=== PATIENT | female | born 1940 | race Caucasian/White ===

== ENCOUNTER 2018-04-30 15:33 | Emergency (ER) | payer OTHER, MEDICARE ==
[~2018-04-30] VITALS: Ht 152.4 cm; Wt 73.9 kg
[~2018-04-30 15:33] MED LIST: ADVAIR DISKUS 21 DSK INH; ASPIR 8181 MG PO; BENICAR HCT 12.1 TA1 PO; NASONEX0.05 MG/Ac NAS; NEXIUM 40MG40 MG PO; NORVASC5 MG PO; SINGULAIR10 MG PO; SYNTHROID0.1 MG PO; TOPROL XL 25MG25 MG PO; TOPROL XL 50MG50 MG PO; XOPENEX HFA45 MCG INH
--- NOTE | 2018-04-30 17:13 | RADIOLOGY REPORT ---
EXAMINATION: XR CHEST CLINICAL INFORMATION: Chest pain COMPARISON: 10/25/2014 TECHNIQUE: 2 views of the chest were obtained. FINDINGS: Cardio missile contours are stable. Mild atherosclerotic calcification involving the visualized thoracic aorta. The lungs are clear aside from subsegmental areas of atelectasis at the lung bases. No pleural effusion. IMPRESSION: No pneumonia. Mild bibasilar subsegmental atelectasis.
--- NOTE | 2018-04-30 17:20 | ED CARDIAC/CP/PALPITATIONS ---
History of Present Illness General Chief Complaint: Chest Pain Stated Complaint: CP/BACK AND SHOULDER PAIN PER PT Source: patient, family Exam Limitations: no limitations Vital Signs & Intake/Output Vital Signs & Intake/Output Vital Signs Date Time Temp Pulse Resp B/P B/P Pulse O2 O2 Flow FiO2 Mean Ox Delivery Rate 04/30 2306 98.2 77 20 140/58 99 Room Air 04/30 1818 98.6 76 18 146/85 98 Room Air 04/30 1718 95 Room Air 04/30 1547 98.4 69 18 155/74 97 Room Air ED Intake and Output 05/01 0000 04/30 1200 Intake Total 0 Output Total Balance 0 Intake, Oral 0 Patient 163 lb Weight Weight Reported by Patient Measurement Method Allergies Coded Allergies: clarithromycin (SWELLING TO FACE 04/30/18) Reconcile Medications Albuterol Sulfate (Proair Hfa) 90 MCG HFA.AER.AD 2 PUF INH Q4-6 PRN PRN ASTHMA (Reported) Amlodipine Besylate 5 MG TABLET 1 TAB PO DAILY BP (Reported) Aspirin (Ecotrin*) 81 MG TABLET.DR 1 TAB PO DAILY HEART/BLOOD (Reported) Azilsartan Med/Chlorthalidone (Edarbyclor 40-12.5 MG Tablet) 40 MG-12.5 MG TABLET 1 TAB PO DAILY BP (Reported) Escitalopram Oxalate 5 MG TABLET 1 TAB PO DAILY MENTAL HEALTH (Reported) Esomeprazole Magnesium (Nexium) 20 MG CAPSULE.DR 1 CAP PO DAILY GI (Reported) Fluticasone Propionate (Flonase Allergy Relief) 50 MCG/ACTUATION SPRAY.SUSP 1 SPRAY NASB AD PRN ALLERGIES (Reported) Fluticasone/Vilanterol (Breo Ellipta 100-25 Mcg INH) 100 MCG-25 MCG/DOSE BLST.W.DEV 1 PUFF INH DAILY ASTHMA (Reported) Levothyroxine Sodium (Synthroid) 100 MCG TABLET 1 TAB PO DAILY THYROID ( Reported) Montelukast Sodium (Singulair) 10 MG TABLET 1 TAB PO DAILY ALLERGIES/RESP. ( Reported) Nebivolol HCl (Bystolic) 10 MG TABLET 1 TAB PO DAILY BP (Reported) Triage Note: 78F WITH MIDSTERNAL CP RADIATES UP LEFT CHEST AND ANTERIOR SHOULDER, WORSE TODAY SINCE 0600 AND NOW RADIATES INTO JAW. PAIN IS CONSTANT AND EXACERBATED BY DEEP BREATH. DENIES N/V. HX ACID REFLUX BUT STATES THIS PAIN IS DIFFERENT. TRACE EDEMA TO BLE, LUNGS CLEAR BILATERALLY. CORPORATE ATTORNEY COUGH, HX ASTHMA. Triage Nurses Notes Reviewed? yes Onset: Gradual Duration: day(s): Timing: recent history Quality/Severity: moderate Location: substernal HPI: 78yo female with hx of HTN, bronchitis presents to ED complaining of substernal chest pain beginning two days ago and worsening today. Patient states chest pain was initially intermittent however today chest pain has become constant. Chest pain is described as pleuritic, radiating from substernal area to left chest/jaw/left arm/back. Patient reports dyspnea associated with her chest pain , worse with exertion. Patient reports recent dryness of her nose and throat. Patient denies abdominal pain, vomiting, cough, hemoptysis. (Madhavi Villanueva) Past History Travel History Traveled to [place] past 21 day No Medical History Any Pertinent Medical History? 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 No (Madhavi Villanueva) Review of Systems Review of Systems Constitutional: Reports: no symptoms. EENTM: Reports: see HPI. Respiratory: Reports: see HPI. Cardiovascular: Reports: see HPI. GI: Reports: no symptoms. Genitourinary: Reports: no symptoms. Musculoskeletal: Reports: no symptoms. Skin: Reports: no symptoms. Neurological/Psychological: Reports: no symptoms. Hematologic/Endocrine: Reports: no symptoms. Immunologic/Allergic: Reports: no symptoms. All Other Systems: Reviewed and Negative (Madhavi Villanueva) Physical Exam Physical Exam General Appearance: well developed/nourished, no apparent distress, alert, awake Head: atraumatic, normal appearance Eyes: Bilateral: normal appearance. Ears, Nose, Throat: hearing grossly normal Neck: normal inspection, supple, full range of motion Respiratory: normal breath sounds, no respiratory distress, lungs clear, sternal and left chest tenderness Cardiovascular: regular rate/rhythm Gastrointestinal: normal bowel sounds, soft, no organomegaly, tenderness through out all quadrants without rebound or gaurding Back: normal inspection, normal range of motion Extremities: normal range of motion Neurologic/Psych: awake, alert, oriented x 3 Skin: intact, normal color, warm/dry Core Measures ACS in differential dx? No CVA/TIA Diagnosis No Sepsis Present: No Sepsis Focused Exam Completed? No (Alaina HARMON,Madhavi Burgos) Progress Differential Diagnosis: AMI, atrial fibrillation, CHF/pulm edema, costochondritis, musculoskeletal pain, myocarditis, pericarditis, pneumonia, pneumothorax, pulmonary embolism, unstable angina Plan of Care: Orders Procedure Date/time Status TROPONIN LEVEL 04/30 2100 Complete EKG 04/30 2100 Active Add-on Test (ER Only) 04/30 1859 Active D-DIMER 04/30 1800 Complete TROPONIN LEVEL 04/30 1544 Complete COMPREHENSIVE METABOLIC PANEL 04/30 1544 Complete CBC WITHOUT DIFFERENTIAL 04/30 1544 Complete EKG 04/30 1534 Active Laboratory Tests 04/30/18 2058: Troponin I < 0.01 04/30/18 1800: Anion Gap 13, Estimated GFR > 60, BUN/Creatinine Ratio 18.9, Glucose 107 H, Calcium 10.0, Total Bilirubin 0.6, AST 22, ALT 25, Alkaline Phosphatase 75, Troponin I < 0.01, Total Protein 8.7 H, Albumin 5.0, Globulin 3.7, Albumin/ Globulin Ratio 1.4, D-Dimer High Sensitivty 297 H, CBC w Diff NO MAN DIFF REQ, RBC 4.63, MCV 89.5, MCH 29.5, MCHC 33.0, RDW 14.3, MPV 7.5, Gran % 88.2 H, Lymphocytes % 6.8 L, Monocytes % 4.4, Eosinophils % 0.5, Basophils % 0.1, Absolute Granulocytes 12.6 H, Absolute Lymphocytes 1.0 L, Absolute Monocytes 0.6, Absolute Eosinophils 0.1, Absolute Basophils 0 Patient's initial EKG is stable, sinus rhythm. Troponin enzyme is negative. Given patient's age and health history repeat EKG and troponin is appropriate to further rule out ACS. Patient's chest pain is atypical, pleuritic and reproducible on exam. The patient is lying in stretcher in no acute distress. Her vital signs are stable. The patient was signed out to Dr. Tate pending d-dimer, repeat EKG and troponin. Diagnostic Imaging: Viewed by Me: Radiology Read. Discussed w/RAD: Radiology Read. CXR Impression: PATIENT: TY PISANO PRESENT AGE : 78 PATIENT ACCOUNT NO: [id number] : 42 LOCATION: [facility] ORDERING PHYSICIAN: Arsenio HARMON SERVICE DATE: 04/30/18 EXAM TYPE: RAD - XRY- CHEST XRAY, TWO VIEWS EXAMINATION: XR CHEST CLINICAL INFORMATION: Chest pain COMPARISON: 10/25/2014 TECHNIQUE: 2 views of the chest were obtained. FINDINGS: Cardio missile contours are stable. Mild atherosclerotic calcification involving the visualized thoracic aorta. The lungs are clear aside from subsegmental areas of atelectasis at the lung bases. No pleural effusion. IMPRESSION: No pneumonia. Mild bibasilar subsegmental atelectasis. DICTATED BY: Sanam Dow MD DATE/TIME DICTATED:04/30/181705 TOP LIFT CUTTER:STEFANO DATE/TIME TRANSCRIBED:1705 CONFIDENTIAL, DO NOT COPY WITHOUT APPROPRIATE AUTHORIZATION. 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 Return with worsening symptoms or concerns. Please note that there might be incidental findings in your evaluation that are unrelated to the current emergency department visit. Please notify your primary care doctor about this emergency department visit in order to obtain and review all of the testing performed so that these incidental findings can be monitored as needed. If you had an x-ray performed, please understand that some fractures may not be seen on the initial set of x-rays. If your symptoms persist you might need a repeat set of x-rays to check for such a fracture. If you had a laceration evaluated, please understand that foreign bodies such as glass or wood may not be visible to the naked eye or on plain x-rays. If the wound becomes red, swollen, increasingly more painful or if there is any drainage from the wound, please have it reevaluated by a physician for the possibility of a retained foreign body. If you're unable to follow up as outlined in the discharge instructions please return to the emergency department. Thank you for choosing the [facility] Emergency Department for your care. It was a pleasure to serve you today. Departure Forms: Customer Survey General Discharge Information (Alaina HARMON,Madhavi Burgos) Departure Comments 04/30/18 10:57 PM I saw and personally examined the patient and I agree with the PAs evaluation. Repeat troponin and EKG are unremarkable. She was signed out to me by FAUSTINO Foley. Age-adjusted d-dimer is negative. She will follow-up with her doctor this week She did have minimal burning discomfort and reflux-like symptoms. She was given a GI cocktail. She was told to follow-up with her diesel bus mechanic this week. (Martínez Tate DO) Critical Care Note Critical Care Note Critical Care Time: non-applicable (Alaina HARMON,Madhavi Burgos)
[2018-04-30] MEDS ORDERED: NEXIUM20 M1 PO (17:21)
[2018-04-30] MEDS ORDERED: BYSTOLIC10 M1 PO (17:21)
[2018-04-30] MEDS ORDERED: EDARBYCLOR 40-1 EACH PO (17:21)
[2018-04-30] MEDS ORDERED: AMLODIPINE BESYL5 M1 PO (17:21)
[2018-04-30] MEDS ORDERED: ESCITALOPRAM OXA5 MG PO (17:22)
[2018-04-30] MEDS ORDERED: SINGULAIR10 M1 PO (17:22)
[2018-04-30] MEDS ORDERED: SYNTHROID100 MCG PO (17:22)
[2018-04-30] MEDS ORDERED: ASPIRIN EC81 M1 PO (17:23)
[2018-04-30] MEDS ORDERED: BREO ELLIPTA 11 EACH INH (17:23)
[2018-04-30] MEDS ORDERED: FLONASE ALLERG9.9 ML NASB (17:24)
[2018-04-30] MEDS ORDERED: PROAIR HFA8.5 GM INH (17:24)
[2018-04-30 18:09] LABS: ABSOLUTE BASOPHIL COUNT 0 /CUMM (0.0-0.2); ABSOLUTE EOSINOPHIL COUNT 0.1 /CUMM (0.0-0.7); ABSOLUTE GRANULOCYTE CT 12.6 /CUMM (1.4-6.5); ABSOLUTE MONOCYTE COUNT 0.6 /CUMM (0.10-0.60); BASOPHIL % 0.1 % (0.0-2.0); EOSINOPHIL % 0.5 % (0-5); HEMATOCRIT 41.4 % (37-47); MEAN CORPUSCULAR HGB 29.5 PG (27.0-31.0); MEAN CORPUSCULAR VOLUME 89.5 FL (81.0-99.0); MEAN PLATELET VOLUME 7.5 FL (7.4-10.4); PLATELET COUNT 189 /CUMM (130-400); RBC DISTRIBUTION WIDTH 14.3 % (11.5-14.5); RED BLOOD CELL CT 4.63 /CUMM (4.20-5.40); WHITE BLOOD CELL COUNT 14.3 /CUMM (4.8-10.8)
[2018-04-30 18:23] LABS: GRANULOCYTE % 88.2 % (42.2-75.2)
[2018-04-30 23:06] VITALS: BP 140/58
== END 2018-04-30 23:19 ==
LOC: ERH 15:33
PROVIDERS: Physician Assistant Medical
DX: R07.89 Other chest pain (principal)
CPT/HCPCS: 71046; 93005; 93010

== ENCOUNTER 2018-05-06 18:56 | Inpatient (IN) | payer OTHER, MEDICARE ==
[~2018-05-06] VITALS: Ht 152.4 cm; Wt 74.4 kg
[~2018-05-06 18:56] MED LIST changes: +AMLODIPINE BESYL5 M1 PO; +ASPIRIN EC81 M1 PO; +BREO ELLIPTA 11 EACH INH; +BYSTOLIC10 M1 PO; +EDARBYCLOR 40-1 EACH PO; +ESCITALOPRAM OXA5 MG PO; +FLONASE ALLERG9.9 ML NASB; +NEXIUM20 M1 PO; +PROAIR HFA8.5 GM INH; +SINGULAIR10 M1 PO; +SYNTHROID100 MCG PO
[2018-05-06 19:31] LABS: ABSOLUTE BASOPHIL COUNT 0 /CUMM (0.0-0.2); ABSOLUTE EOSINOPHIL COUNT 0 /CUMM (0.0-0.7); ABSOLUTE GRANULOCYTE CT 19.2 /CUMM (1.4-6.5); ABSOLUTE MONOCYTE COUNT 0.9 /CUMM (0.10-0.60); BASOPHIL % 0.2 % (0.0-2.0); EOSINOPHIL % 0.2 % (0-5); HEMATOCRIT 36.7 % (37-47); MEAN CORPUSCULAR HGB 29.8 PG (27.0-31.0); MEAN CORPUSCULAR HGB CONC 33.5 G/DL (33.0-37.0); MEAN CORPUSCULAR VOLUME 88.9 FL (81.0-99.0); PLATELET COUNT 226 /CUMM (130-400); RBC DISTRIBUTION WIDTH 14.2 % (11.5-14.5); RED BLOOD CELL CT 4.13 /CUMM (4.20-5.40); WHITE BLOOD CELL COUNT 21.2 /CUMM (4.8-10.8)
[2018-05-06 19:33] LABS: GRANULOCYTE % 90.9 % (42.2-75.2)
--- NOTE | 2018-05-06 20:09 | ED CARDIAC/CP/PALPITATIONS ---
History of Present Illness General Chief Complaint: Chest Pain Stated Complaint: CHEST PAIN Source: patient, family, old records Exam Limitations: no limitations Vital Signs & Intake/Output Vital Signs & Intake/Output Vital Signs Date Time Temp Pulse Resp B/P B/P Pulse O2 O2 Flow FiO2 Mean Ox Delivery Rate 05/06 2153 102 20 147/62 96 Nasal 2.0L Cannula 05/06 2052 99.0 101 20 152/72 97 Nasal 2.0L Cannula 05/06 2049 99.0 05/06 2015 112 28 98/66 05/06 2015 112 28 98/66 95 Nasal 2.0L Cannula 05/06 2000 Nasal 2.0L Cannula 05/06 1935 130 26 141/79 05/06 1912 97.6 136 22 147/92 96 Room Air Allergies Coded Allergies: clarithromycin (SWELLING TO FACE 04/30/18) Reconcile Medications Albuterol Sulfate (Proair Hfa) 90 MCG HFA.AER.AD 2 PUF INH Q4-6 PRN PRN ASTHMA (Reported) Amlodipine Besylate 5 MG TABLET 1 TAB PO DAILY BP (Reported) Aspirin (Ecotrin*) 81 MG TABLET.DR 1 TAB PO DAILY HEART/BLOOD (Reported) Azilsartan Med/Chlorthalidone (Edarbyclor 40-12.5 MG Tablet) 40 MG-12.5 MG TABLET 1 TAB PO DAILY BP (Reported) Escitalopram Oxalate 5 MG TABLET 1 TAB PO DAILY MENTAL HEALTH (Reported) Esomeprazole Magnesium (Nexium) 20 MG CAPSULE.DR 1 CAP PO DAILY GI (Reported) Fluticasone Propionate (Flonase Allergy Relief) 50 MCG/ACTUATION SPRAY.SUSP 1 SPRAY NASB AD PRN ALLERGIES (Reported) Fluticasone/Vilanterol (Breo Ellipta 100-25 Mcg INH) 100 MCG-25 MCG/DOSE BLST.W.DEV 1 PUFF INH DAILY ASTHMA (Reported) Levothyroxine Sodium (Synthroid) 100 MCG TABLET 1 TAB PO DAILY THYROID ( Reported) Montelukast Sodium (Singulair) 10 MG TABLET 1 TAB PO DAILY ALLERGIES/RESP. ( Reported) Nebivolol HCl (Bystolic) 10 MG TABLET 1 TAB PO DAILY BP (Reported) Core Measure Meds Pre-Hospital aspirin Triage Note: PT TO TRIAGE C/O MIDSUBSTERNAL CP, NONRADIATING IN NATURE X APPROX 1 HR. PT DIRECTLY TO [place] FOR EKG, UNABLE TO SPEAK IN FULL SENTENCES, MOANING IN PAIN, DENIES SOB, 02 96% RA, PT UNABLE TO TOLERATE LYING FLAT FOR EKG. EKG READING AFIB, HR IN TRIAGE 120-140. DENIES HX OF AFIB. PT TO ROOM 10. Triage Nurses Notes Reviewed? yes Onset: Afternoon Duration: hour(s):, constant, continues in ED, getting worse Timing: single episode today Quality/Severity: severe, tightness Location: substernal Radiation: no radiation Activities at Onset: none (after taking Breo), rest Prior Chest Pain/Card Workup: echocardiography Modifying Factors: Worsens With: exercise, movement. Nitro Today/Relief: 0.4 mg x 1, provided by ED, mild relief Aspirin Today: 325 mg x 1, provided by ED Associated Symptoms: dizziness, shortness of breath, nausea/vomiting LMP (ages 10-50): post menopausal : No Patient currently breastfeeds: No HPI: 4 hours prior to admission patient complains of heavy severe substernal chest pain nonradiating constant occurring after using Breo inhaler associated with nausea shortness of breath dizziness. She denies fever chills vomiting diarrhea headache dysuria rash bleeding. Past History Travel History Traveled to [place] past 21 day No Medical History Any Pertinent Medical History? 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 No Review of Systems Review of Systems Constitutional: Reports: see HPI, weakness. EENTM: Reports: no symptoms. Respiratory: Reports: see HPI, short of breath. Cardiovascular: Reports: see HPI, chest pain. GI: Reports: no symptoms. Genitourinary: Reports: no symptoms. Musculoskeletal: Reports: no symptoms. Skin: Reports: no symptoms. Neurological/Psychological: Reports: no symptoms. Hematologic/Endocrine: Reports: no symptoms. Immunologic/Allergic: Reports: no symptoms. All Other Systems: Reviewed and Negative Physical Exam Physical Exam General Appearance: well developed/nourished, alert, awake, anxious, severe distress Head: atraumatic, normal appearance Eyes: Bilateral: normal appearance, PERRL, EOMI. Ears, Nose, Throat: normal pharynx, normal ENT inspection Neck: normal inspection, supple, full range of motion, no midline tenderness Respiratory: normal breath sounds, chest non-tender, no respiratory distress, quiet respiration, lungs clear Cardiovascular: normal peripheral pulses, tachycardia, irregularly irregular, norml femoral pulses equa Peripheral Pulses: 4+ carotid (R), 4+ carotid (L) Gastrointestinal: normal bowel sounds, soft, non-tender, no organomegaly Back: normal inspection, normal range of motion, no vertebral tenderness Extremities: normal inspection, normal capillary refill, normal range of motion, no edema Neurologic/Psych: no motor/sensory deficits, awake, alert, oriented x 3, stogy roller II- XII nml as tested Reflexes: 2+: bicep (R), bicep (L). Skin: intact, normal color, warm/dry Lymphatic: no anterior cervical david Core Measures ACS in differential dx? Yes No ASA d/t Pharmacological CI CVA/TIA Diagnosis No Sepsis Present: No Sepsis Focused Exam Completed? No Progress Differential Diagnosis: atrial fibrillation, CHF/pulm edema, costochondritis, hyperkalemia, hypovolemia, pneumonia Plan of Care: Orders Procedure Date/time Status Heart Healthy Diet 05/07 B Active Weight 05/06 2246 Active Vital Signs 05/06 2246 Active Teach/Educate 05/06 2246 Active Pain Treatment and Response 05/06 2246 Active Nutritional Intake, Monitor 05/06 2246 Active Isolation 05/06 224 Active Intake & Output 05/06 224 Active Patient Care Conference 05/06 2246 Active Activity/Ambulation 05/06 224 Active Intake & Output 05/06 2229 Active TSH REFLEX 05/06 214 Complete LIPID PANEL 05/06 2148 Complete Lab Add-on Test 05/06 2125 Active Patient Data 05/06 2123 Active XRY-PORTABLE CHEST XRAY 05/06 2113 Active CULTURE,URINE 05/06 2113 Active URINALYSIS 05/06 2113 Active LACTIC ACID 05/06 2113 Complete OXYGEN SETUP (GEN) 05/06 1936 Active Saline Lock 05/06 1936 Active Admit to inpatient 05/06 1936 Active Vital Signs 05/06 1936 Active Activity/Ambulation 05/06 1936 Active Code Status 05/06 1936 Active TROPONIN LEVEL 05/06 1924 Complete MAGNESIUM 05/06 1924 Complete COMPREHENSIVE METABOLIC PANEL 05/06 1924 Complete CBC WITHOUT DIFFERENTIAL 05/06 1924 Complete EKG 05/06 1857 Active Laboratory Tests 05/06/182148: Triglycerides 66, Cholesterol 137, LDL Cholesterol, Calc 82, HDL Cholesterol 42, Cholesterol/HDL Ratio 3, TSH &T3 &Free T4 Intrp 1.020 05/06/182115: Lactic Acid 1.1 05/06/181923: Anion Gap 12, Estimated GFR 54 L, BUN/Creatinine Ratio 32.0 H, Glucose 139 H, Calcium 9.5, Magnesium 1.9, Total Bilirubin 0.5, AST 19, ALT 22, Alkaline Phosphatase 59, Troponin I 0.01, Total Protein 7.4, Albumin 4.0, Globulin 3.4, Albumin/Globulin Ratio 1.2, CBC w Diff MAN DIFF ORDERED, RBC 4.13 L, MCV 88.9, MCH 29.8, MCHC 33.5, RDW 14.2, MPV 8.0, Gran % 90.9 H, Lymphocytes % 4.5 L, Monocytes % 4.2, Eosinophils % 0.2, Basophils % 0.2, Absolute Granulocytes 19.2 H, Segmented Neutrophils 86 H, Band Neutrophils 0, Absolute Lymphocytes 1.0 L, Lymphocytes 4 L, Monocytes 10 H, Absolute Monocytes 0.9 H, Absolute Eosinophils 0, Absolute Basophils 0, Platelet Estimate VERIFIED BY SMEAR, Normocytic RBCs VERIFIED, Normochromic RBCs VERIFIED, Fld Total RBCs Counted 100 Microbiology 05/06 2113 URINE ROUT: Urine Culture - ORD Diagnostic Imaging: Viewed by Me: CT Scan. Discussed w/RAD: CT Scan. Radiology Impression: - No central pulmonary emboli. No dissection. - There is interlobular septal thickening that is greatest at the lung bases suggesting mild to moderate interstitial pulmonary edema. Trace right pleural effusion. - Cardiomegaly. Coronary artery and thoracic aortic atherosclerotic calcification. Initial ED EKG: AFIB, nonspecific ST T wave chg Prior EKG: changed Rhythm Strip: atrial fibrillation Departure Departure Disposition: STILL A PATIENT Condition: Fair Clinical Impression Primary Impression: Atrial fibrillation with rapid ventricular response Secondary Impressions: Acute prerenal azotemia, Chest pain syndrome, Leukocytosis Referrals: Emil GREGORY,Agustin Felipe (PCP/Family) Departure Forms: Customer Survey General Discharge Information Admission Note Spoke With: Nicola Piña MD Documentation of Exam: Documentation of any treatments & extenuating circumstances including Concerns Regarding Discharge (functional status, medication knowledge or non-compliance, living conditions, etc.) that warrant an admission rather than observation: Heart rate control cardiac monitoring and anticoagulation serial lab exam serial EKG medication adjustment cardiology evaluation continuing care discharge planning Critical Care Note Critical Care Note Critical Care Time: 30-74 min (45)
--- NOTE | 2018-05-06 21:13 | History & Physical ---
Tawanda Jay 05/06/182111: General Information and HPI MD Statement: I have seen and personally examined TY PISANO and documented this H&P. The patient is a 78 year old F who presented with a patient stated chief complaint of MID-STERNAL CHEST PAIN. Source of Information: patient, family, old records Exam Limitations: no limitations History of Present Illness: This patient is a 78 year old woman with past medical history of hypertension, asthma, bronchitis, and a renal cystic mass was brought in by spouse for heavy midsternal chest pain. The patient was recently seen in this ER six days ago with a similar pain. Serial EKGs and troponins were taken, which were normal limit trops and sinus rhythm EKGs, and the patient was discharged home from the ED. Today at approximately 1500, the patient was not experiencing any symptoms until she took her dose of Breo, at which point she began to experience a heavy, midsternal chest pain with mild radiaton to the back, as well as shortness of breath. She tried to manage the pain with her rescue inhaler per Breo instructions. She states that during this time, she did not experience palpitations or headache, but did experience mild lightheadedness. When the pain did not improve, she had her bring her to the ED. In the ED her EKG showed atrial fibrillation HR 120-140, with negative troponin. The patient received one dose of nitroglycerin, whcih dropped her blood pressure to 98/66. 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 Home Who Do You Live With? spouse Services at Home: None Primary Language: Vincentian Smoking Status: Former Smoker ETOH Use: occasional use Illicit Drug Use: denies illicit drug use Functional Ability ADLs Independent: dressing, eating, toileting, bathing. Ambulation: independent IADLs Independent: shopping, housework, finances, food prep, telephone, transportation , medication admin. Review of Systems Review of Systems Constitutional: Reports: diaphoresis (at night for past month), weakness. EENTM: Reports: no symptoms. Cardiovascular: Reports: no symptoms, chest pain, orthopena. Denies: edema, palpitations, syncope. Respiratory: Reports: see HPI, short of breath. GI: Reports: no symptoms. Genitourinary: Reports: no symptoms. Skin: Reports: no symptoms. Neurological/Psychological: Reports: no symptoms. Exam & Diagnostic Data Last 24 Hrs of Vital Signs/I&O Vital Signs Date Time Temp Pulse Resp B/P B/P Pulse O2 O2 Flow FiO2 Mean Ox Delivery Rate 05/06 2153 102 20 147/62 96 Nasal 2.0L Cannula 05/06 2052 99.0 101 20 152/72 97 Nasal 2.0L Cannula 05/06 2049 99.0 05/06 2015 112 28 98/66 05/06 2015 112 28 98/66 95 Nasal 2.0L Cannula 05/06 2000 Nasal 2.0L Cannula 05/06 1935 130 26 141/79 05/06 1912 97.6 136 22 147/92 96 Room Air Physical Exam General Appearance Alert, Oriented X3, Cooperative, Mild Distress, Speaking full sentences, catching breath at end Skin No Rashes, No Breakdown, No Significant Lesion Skin Temp/Moisture Exam: Warm/Dry HEENT Atraumatic, PERRLA, EOMI Neck Supple, No JVD, No thryomegaly, +2 Carotid Pulse wo Bruit Lymphatic Cervical nl Cardiovascular Normal S1, Normal S2, No Murmurs, Gallops, Rubs, irregularly irregular rhythm, rate 90-110 Lungs Clear to Auscultation, decreased air movement Abdomen Normal Bowel Sounds, Soft, No Tenderness, No Hepatospenomegaly Neurological Normal Speech, Strength at 5/5 X4 Ext, Normal Tone, Sensation Intact, Cranial Nerves 3-12 NL Extremities No Clubbing, No Cyanosis, No Edema Last 24 Hrs of Labs/Tony: Laboratory Tests 05/06/182148: Triglycerides Pending, Cholesterol Pending, LDL Cholesterol, Calc Pending, HDL Cholesterol Pending, Cholesterol/HDL Ratio Pending, TSH &T3 &Free T4 Intrp Pending 05/06/182115: Lactic Acid 1.1 05/06/181923: Anion Gap 12, Estimated GFR 54 L, BUN/Creatinine Ratio 32.0 H, Glucose 139 H, Calcium 9.5, Magnesium 1.9, Total Bilirubin 0.5, AST 19, ALT 22, Alkaline Phosphatase 59, Troponin I 0.01, Total Protein 7.4, Albumin 4.0, Globulin 3.4, Albumin/Globulin Ratio 1.2, CBC w Diff MAN DIFF ORDERED, RBC 4.13 L, MCV 88.9, MCH 29.8, MCHC 33.5, RDW 14.2, MPV 8.0, Gran % 90.9 H, Lymphocytes % 4.5 L, Monocytes % 4.2, Eosinophils % 0.2, Basophils % 0.2, Absolute Granulocytes 19.2 H, Segmented Neutrophils 86 H, Band Neutrophils 0, Absolute Lymphocytes 1.0 L, Lymphocytes 4 L, Monocytes 10 H, Absolute Monocytes 0.9 H, Absolute Eosinophils 0, Absolute Basophils 0, Platelet Estimate VERIFIED BY SMEAR, Normocytic RBCs VERIFIED, Normochromic RBCs VERIFIED, Fld Total RBCs Counted 100 Microbiology 05/06 2113 URINE ROUT: Urine Culture - ORD Diagnostic Data EKG Results Atrial fibrillation, rate 120s -> 90-100 Other Results CTA - No central PE, no dissection. Mild/moderate pulmonary edema. Trace R pleural effusion. Cardiomegaly present. Assessment/Plan Assessment: 78-year-old woman with past medical history of hypertension, asthma, bronchitis, renal mass who came to the ED with midsternal, heavy chest pain. Problem list/plan: Chest pain -Admit to telemetry New onset atrial fibrillation DVT prophylaxis: IV heparin, ALPS Heart healthy diet Patient is full code As Ranked By This Provider Problem List: 1. Chest pain 2. Atrial fibrillation with rapid ventricular response Core Measures/Misc (06/05) Acute Coronary Syndrome ACS Diagnosis: No Congestive Heart Failure Congestive Heart Failure Diagnosis No Cerebrovascular Accident CVA/TIA Diagnosis: No VTE (View Protocol) VTE Risk Factors Age>40 No Mechanical VTE Prophylaxis d/t N/A MechProphylax Ordered No VTE Pharm Prophylaxis d/t NA PharmProphylax ordered Sepsis (View protocol) Sepsis Present: No If YES complete Sepsis Event Note If YES complete Sepsis Event Note Gray Alamo MD 05/06/18: General Information and HPI MD Statement: I have seen and personally examined ALIYATY Frias and documented this H&P. The patient is a 78 year old F who presented with a patient stated chief complaint of chest pain. Source of Information: patient, family, old records Exam Limitations: no limitations History of Present Illness: 78 year old female with PMH significant for hypothyroidism, bronchitis, HTN, GERD, and a renal cystic mass presented with complaints of acute onset chest pain. She previously visited the ED one week prior with similiar complaints, pleuritic chest radiating to the jaw, left arm, and back and was sent home from the ED with two negative troponins. Today, she developed acute onset substernal chest pain, 6/10 in severity, describes the pain as a chest heaviness, radiating to the back suddenly around 1500 and has some associated dyspnea. She notes that it started after taking her Breo. She also had been carrying some things around the house and gone up and down the stairs but doesn't link exertion with her chest pain. The chest pain was waxing and waning but constantly present. She states it was aggravating with deep breathing and no relieving factors. She tried sitting down and albuterol but those didn't help. She denies any fevers, chills, cough, and sore throat. She denies any nausea, lightheadedness, diaphoresis, palpitations, or presyncope with her chest pain. She has had some nasal congestion recently managed with Flonase but she thinks that is improving. She has noticed the last couple of weeks she has felt weak, more easily fatigued with things she does normally like shopping, walking upstairs or an incline. She has been sitting down to rest more frequently. She states she feels similar now to how she felt on her prior ED visit a week ago. She has never awoken from sleep with dyspnea or chest pain. She is able to lie flat although she sleeps inclined for comfort. She recently started sleeping downstairs because of arthritic finger pain and difficulty getting into an elevated bed but clearly states not from dyspnea related to climbing the flight of stairs to get to the bedroom. She has noticed some night time sweating and fatigue for the past month. She sees Dr. Flower as her operations processor and has negative stress echo and normal left ventricular function on studies performed here in 2009. She smoked <5 pack years total, quit 40 years ago, and has been evaluated by Dr. Quesada in the past but her Breo and albuterol are prescribed by her PCP, Dr. Stein. In the ED, labs were notable for leukocytosis. She was found to be in rapid atrial fibrillation on arrival. She was treated with nitroglycerin for chest pain complicated by hypotension to 90/60 and given NS x 250cc, followed by diltiazem 10mg IVP and digoxin for rate control. She was also given morphine, tylenol, and aspirin 325mg. She had a CTA performed negative for PE. She was admitted to telemetry for afib with RVR and atypical chest pain, r/o ACS. Allergies/Medications Compliance With Home Meds: GOOD Past History Travel History Traveled to [place] past 21 day No Medical History Cardiovascular: hypertension Respiratory: asthma, bronchitis Gastrointestinal: ACID REFLUX Endocrine: hypothyroidism Surgical History Surgical History: cholecystectomy, , hysterectomy Past Family/Social History Family History Relations & Conditions if any FATHER FH: myocardial infarction, Onset: 40-50. MOTHER FH: myocardial infarction BROTHER FH: myocardial infarction BROTHER FH: myocardial infarction Relation not specified for: FH: CHF (congestive heart failure) Psychosocial History Where do you live? Home Who Do You Live With? spouse Services at Home: None Primary Language: Vincentian Smoking Status: Former Smoker ETOH Use: occasional use (drinks wknd b4 cp 04/30 ) Illicit Drug Use: denies illicit drug use Functional Ability ADLs Independent: dressing, eating, toileting, bathing. Ambulation: independent IADLs Independent: shopping, housework, finances, food prep, telephone, transportation , medication admin. Employment History Employment Retired Review of Systems Review of Systems Constitutional: Reports: malaise, weakness. Denies: chills, fever. EENTM: Reports: nasal congestion. Cardiovascular: Reports: chest pain. Denies: orthopena, palpitations, peripheral edema, syncope. Respiratory: Reports: short of breath. Denies: orthopnea, sputum production, wheezing. GI: Denies: abdominal pain, diarrhea, melena, nausea, vomiting. Genitourinary: Denies: dysuria, frequency. Musculoskeletal: Reports: no symptoms. Skin: Reports: no symptoms. Neurological/Psychological: Reports: no symptoms. Hematologic/Endocrine: Reports: no symptoms. Immunologic/Allergic: Reports: no symptoms. All Other Systems: Reviewed and Negative Exam & Diagnostic Data Last 24 Hrs of Vital Signs/I&O Vital Signs Date Time Temp Pulse Resp B/P B/P Pulse O2 O2 Flow FiO2 Mean Ox Delivery Rate 05/06 2259 99.0 107 18 148/70 98 Nasal 2.0L Cannula 05/06 2246 Nasal 2.0L Cannula 05/06 2153 102 20 147/62 96 Nasal 2.0L Cannula 05/06 2052 99.0 101 20 152/72 97 Nasal 2.0L Cannula 05/06 2049 99.0 05/06 2015 112 28 98/66 05/06 2015 112 28 98/66 95 Nasal 2.0L Cannula 05/06 2000 Nasal 2.0L Cannula 05/06 193 130 26 141/79 05/06 191 97.6 136 22 147/92 96 Room Air Intake & Output 05/07 0800 05/07 0000 05/06 1600 Intake Total Output Total Balance Patient 74.559 kg Weight Weight Bed scale Measurement Method Physical Exam General Appearance Alert, Oriented X3, Cooperative, No Acute Distress Neck Supple, No JVD Cardiovascular Regular Rate, Normal S1, Normal S2, irregularly irregular rhythm, rate 90-110 Lungs Clear to Auscultation, diminished at the bases Abdomen Normal Bowel Sounds, Soft, No Tenderness, No Hepatospenomegaly Extremities No Clubbing, No Cyanosis, No Edema, Normal Pulses Last 24 Hrs of Labs/Tony: Laboratory Tests 05/07/18 0020: Troponin I 0.01 05/06/182321: Urine Color YEL, Urine Clarity CLEAR, Urine pH 6.0, Ur Specific [place] <= 1.005 , Urine Protein NEG, Urine Ketones NEG, Urine Nitrite NEG, Urine Bilirubin NEG, Urine Urobilinogen 0.2, Ur Leukocyte Esterase NEG, Ur Microscopic EXAM NOT REQUIRED, Urine Hemoglobin NEG, Urine Glucose NEG 05/06/189: Triglycerides 66, Cholesterol 137, LDL Cholesterol, Calc 82, HDL Cholesterol 42, Cholesterol/HDL Ratio 3, TSH &T3 &Free T4 Intrp 1.020 05/06/182115: Lactic Acid 1.1 05/06/181923: Anion Gap 12, Estimated GFR 54 L, BUN/Creatinine Ratio 32.0 H, Glucose 139 H, Calcium 9.5, Magnesium 1.9, Total Bilirubin 0.5, AST 19, ALT 22, Alkaline Phosphatase 59, Troponin I 0.01, Total Protein 7.4, Albumin 4.0, Globulin 3.4, Albumin/Globulin Ratio 1.2, CBC w Diff MAN DIFF ORDERED, RBC 4.13 L, MCV 88.9, MCH 29.8, MCHC 33.5, RDW 14.2, MPV 8.0, Gran % 90.9 H, Lymphocytes % 4.5 L, Monocytes % 4.2, Eosinophils % 0.2, Basophils % 0.2, Absolute Granulocytes 19.2 H, Segmented Neutrophils 86 H, Band Neutrophils 0, Absolute Lymphocytes 1.0 L, Lymphocytes 4 L, Monocytes 10 H, Absolute Monocytes 0.9 H, Absolute Eosinophils 0, Absolute Basophils 0, Platelet Estimate VERIFIED BY SMEAR, Normocytic RBCs VERIFIED, Normochromic RBCs VERIFIED, Fld Total RBCs Counted 100 Microbiology 05/06 2322 URINE ROUT: Urine Culture - RECD Diagnostic Data EKG Results afib, HR 120s-150, no ischemic changes CXR Results Crowding of lung markings at the bases bilaterally probably poor inspiration, cannot rule out mild infiltrates. Clinical correlation recommended. May consider follow-up chest PA and lateral when patient's condition permits. Other Results CTA No filling defects within the central, lobar, or segmental pulmonary arteries to suggest underlying pulmonary embolism. There is interlobular septal thickening that is greatest at the lung bases suggesting mild to moderate interstitial pulmonary edema. Trace right pleural effusion. The thoracic aorta is normal in caliber. There is atherosclerotic calcification throughout the thoracic aorta. There is coronary artery atherosclerotic calcification. The heart is enlarged without a pericardial effusion. There is no mediastinal, hilar, or axillary adenopathy. No significant soft tissue findings within the chest. The partially visualized upper abdomen is unremarkable. No acute osseous abnormalities. Thoracic spondylosis. IMPRESSION: - No central pulmonary emboli. No dissection. - There is interlobular septal thickening that is greatest at the lung bases suggesting mild to moderate interstitial pulmonary edema. Trace right pleural effusion. - Cardiomegaly. Coronary artery and thoracic aortic atherosclerotic calcification. Assessment/Plan Assessment: 78 year old female with PMH significant for hypothyroidism, bronchitis, HTN, GERD, and a renal cystic mass presented with complaints of acute onset atypical chest pain, similar complaints on previous ED visit one week ago, found to be in atrial fibrillation with rapid ventricular response. Atypical chest pain: Rule out acute coronary syndrome with serial troponins and EKGs Cardiology consultation, Dr. Flower Continue aspirin, beta madeleine Lipid panel LDL 82, total cholesterol 137, HDL 42, add atorvastatin 40mg Became transiently hypotensive after receiving 0.4mg sl nitroglycerin Atrial fibrillation: with CHADSvasc of 4, elderly, female, with HTN Start heparin gtt Patient received 10mg diltiazem IVP in the ED with improved heart rate 90-110 Received digoxin 0.5mg IV x 1 dose Patient is on nebivolol at home, will hold and start metoprolol at higher than equivalent dose Metoprolol 75mg PO BID, increase dose or frequency as needed for added rate control Leukocytosis: 21,000, no clear source for infection, cxr negative, ua negative Afebrile, monitor off antibiotics, trend WBC Hypothyroidism: TSH wnl Continue synthroid 100mcg daily Bronchitis: Continue singulair and change Breo for symbicort HTN: Continue norvasc Subsitute home ARB/chlorthalidone with Losartan 100/HCTZ 12.5mg daily GERD: Continue PO PPI Depression: Continue lexapro 5mg daily Heart healthy diet DVT ppx-IV heparin Full code As Ranked By This Provider Problem List: 1. Leukocytosis 2. Atrial fibrillation with rapid ventricular response 3. Chest pain Core Measures/Misc (06/05) Acute Coronary Syndrome ACS Diagnosis: No Congestive Heart Failure Congestive Heart Failure Diagnosis No Cerebrovascular Accident CVA/TIA Diagnosis: No VTE (View Protocol) VTE Risk Factors Age>40 No Mechanical VTE Prophylaxis d/t N/A MechProphylax Ordered No VTE Pharm Prophylaxis d/t NA PharmProphylax ordered Sepsis (View protocol) Sepsis Present: No If YES complete Sepsis Event Note If YES complete Sepsis Event Note Wang GREGORYFlomaton 05/07/18 0007: General Information and HPI MD Statement: I have seen and personally examined TY PISANO and documented this H&P. The patient is a 78 year old F who presented with a patient stated chief complaint of []. Source of Information: patient Exam Limitations: no limitations Allergies/Medications Allergies: Coded Allergies: clarithromycin (SWELLING TO FACE 04/30/18) Home Med list Albuterol Sulfate (Proair Hfa) 90 MCG HFA.AER.AD 2 PUF INH Q4-6 PRN PRN ASTHMA (Reported) Amlodipine Besylate 5 MG TABLET 1 TAB PO DAILY BP (Reported) Aspirin (Ecotrin*) 81 MG TABLET.DR 1 TAB PO DAILY HEART/BLOOD (Reported) Azilsartan Med/Chlorthalidone (Edarbyclor 40-12.5 MG Tablet) 40 MG-12.5 MG TABLET 1 TAB PO DAILY BP (Reported) Escitalopram Oxalate 5 MG TABLET 1 TAB PO DAILY MENTAL HEALTH (Reported) Esomeprazole Magnesium (Nexium) 20 MG CAPSULE.DR 1 CAP PO DAILY GI (Reported) Fluticasone Propionate (Flonase Allergy Relief) 50 MCG/ACTUATION SPRAY.SUSP 1 SPRAY NASB AD PRN ALLERGIES (Reported) Fluticasone/Vilanterol (Breo Ellipta 100-25 Mcg INH) 100 MCG-25 MCG/DOSE BLST.W.DEV 1 PUFF INH DAILY ASTHMA (Reported) Levothyroxine Sodium (Synthroid) 100 MCG TABLET 1 TAB PO DAILY THYROID ( Reported) Montelukast Sodium (Singulair) 10 MG TABLET 1 TAB PO DAILY ALLERGIES/RESP. 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 Exam & Diagnostic Data Last 24 Hrs of Vital Signs/I&O Vital Signs Date Time Temp Pulse Resp B/P B/P Pulse O2 O2 Flow FiO2 Mean Ox Delivery Rate 05/06 2259 99.0 107 18 148/70 98 Nasal 2.0L Cannula 05/06 2246 Nasal 2.0L Cannula 05/06 2153 102 20 147/62 96 Nasal 2.0L Cannula 05/06 2052 99.0 101 20 152/72 97 Nasal 2.0L Cannula 05/06 2049 99.0 05/06 2015 112 28 98/66 05/06 2015 112 28 98/66 95 Nasal 2.0L Cannula 05/06 2000 Nasal 2.0L Cannula 05/06 1935 130 26 141/79 05/06 191 97.6 136 22 147/92 96 Room Air Intake & Output 05/07 0800 05/07 0000 05/06 1600 Intake Total Output Total Balance Patient 164 lb Weight Weight Bed scale Measurement Method Physical Exam General Appearance Alert, Oriented X3, Cooperative, No Acute Distress Skin No Rashes, No Breakdown, No Significant Lesion Skin Temp/Moisture Exam: Warm/Dry HEENT Atraumatic, PERRLA, EOMI Neck Supple, No JVD, No thryomegaly, +2 Carotid Pulse wo Bruit Lymphatic Axillary nl, Cervical nl Cardiovascular Normal S1, Normal S2, irregularly irregular rhythm, rate 90-110 Lungs Clear to Auscultation, Normal Air Movement Abdomen Normal Bowel Sounds, Soft, No Tenderness, No Hepatospenomegaly Neurological Normal Speech Last 24 Hrs of Labs/Tony: Laboratory Tests 05/06/182148: Triglycerides 66, Cholesterol 137, LDL Cholesterol, Calc 82, HDL Cholesterol 42, Cholesterol/HDL Ratio 3, TSH &T3 &Free T4 Intrp 1.020 05/06/182115: Lactic Acid 1.1 05/06/181923: Anion Gap 12, Estimated GFR 54 L, BUN/Creatinine Ratio 32.0 H, Glucose 139 H, Calcium 9.5, Magnesium 1.9, Total Bilirubin 0.5, AST 19, ALT 22, Alkaline Phosphatase 59, Troponin I 0.01, Total Protein 7.4, Albumin 4.0, Globulin 3.4, Albumin/Globulin Ratio 1.2, CBC w Diff MAN DIFF ORDERED, RBC 4.13 L, MCV 88.9, MCH 29.8, MCHC 33.5, RDW 14.2, MPV 8.0, Gran % 90.9 H, Lymphocytes % 4.5 L, Monocytes % 4.2, Eosinophils % 0.2, Basophils % 0.2, Absolute Granulocytes 19.2 H, Segmented Neutrophils 86 H, Band Neutrophils 0, Absolute Lymphocytes 1.0 L, Lymphocytes 4 L, Monocytes 10 H, Absolute Monocytes 0.9 H, Absolute Eosinophils 0, Absolute Basophils 0, Platelet Estimate VERIFIED BY SMEAR, Normocytic RBCs VERIFIED, Normochromic RBCs VERIFIED, Fld Total RBCs Counted 100 Microbiology 05/06 2113 URINE ROUT: Urine Culture - ORD Core Measures/Misc (06/05) Sepsis (View protocol) If YES complete Sepsis Event Note If YES complete Sepsis Event Note Attending MD Review Statement Attending Statement Attending MD Statement: examined this patient, discuss w/resident/PA/EQUIPMENT SERVICE ASSOCIATE, agreed w/resident/PA/EQUIPMENT SERVICE ASSOCIATE, reviewed EMR data (avail), amended to note Attending Assessment/Plan: This patient is a 78 year old woman with a significant past medical history for hypertension, asthma, bronchitis, and a renal cystic mass who was brought in by spouse for heavy midsternal chest pain. The patient was recently seen in this ER six days ago with a similar pain. Serial EKGs and troponins were taken, which were negative for ACS or Arrhythmia and the patient was discharged home from the ED. Today at approximately 1500 began to experience a heavy, midsternal chest pain with mild radiaton to the back, as well as shortness of breath. When the pain did not improve, she had her bring her to the ED. upon evaluation in the emergency department the patient was found to be in A. fib, she had a mild elevation in her blood pressure 148/70, leukocytosis 21.2, hyponatremia 132 , BUN 32, troponins negative, thyroid function normal, CXR NAD, and CTA No PE. The patient is admitted to Telemetry for new onset A. fib and rule out acute coronary syndrome. Will get serial EKGs, start a heparin drip, rate control with beta blockers and cardiology consult on the morning.
--- NOTE | 2018-05-06 21:20 | CT SCAN REPORT ---
CTA OF THE CHEST, PE PROTOCOL INDICATION: New onset atrial fibrillation, shortness of breath, and chest pain. COMPARISON: Chest x-ray 04/30/2018. TECHNIQUE: A multidetector CTA acquisition of the chest is obtained following the administration of 95 of Optiray 320 without complication. 3-D postprocessing including the acquisition of multiplanar MIP reformats were acquired at the technologist workstation and utilized for image interpretation. FINDINGS: No filling defects within the central, lobar, or segmental pulmonary arteries to suggest underlying pulmonary embolism. There is interlobular septal thickening that is greatest at the lung bases suggesting mild to moderate interstitial pulmonary edema. Trace right pleural effusion. The thoracic aorta is normal in caliber. There is atherosclerotic calcification throughout the thoracic aorta. There is coronary artery atherosclerotic calcification. The heart is enlarged without a pericardial effusion. There is no mediastinal, hilar, or axillary adenopathy. No significant soft tissue findings within the chest. The partially visualized upper abdomen is unremarkable. No acute osseous abnormalities. Thoracic spondylosis. IMPRESSION: - No central pulmonary emboli. No dissection. - There is interlobular septal thickening that is greatest at the lung bases suggesting mild to moderate interstitial pulmonary edema. Trace right pleural effusion. - Cardiomegaly. Coronary artery and thoracic aortic atherosclerotic calcification.
[2018-05-06 22:59] VITALS: BP 148/70
--- NOTE | 2018-05-06 23:48 | RADIOLOGY REPORT ---
EXAMINATION: XR PORTABLE CHEST CLINICAL INFORMATION: Leukocytosis pneumonia COMPARISON: 04/30/2018 TECHNIQUE: Portable frontal view of the chest was obtained. FINDINGS: There is a crowding of lung markings of the bases, probably poor inspiration, cannot rule out superimposed mild infiltrates. There is no pleural effusion. Cardiac silhouette and mediastinum are widened exaggerated by the AP technique. There is no pneumothorax. IMPRESSION: Crowding of lung markings at the bases bilaterally probably poor inspiration, cannot rule out mild infiltrates. Clinical correlation recommended. May consider follow-up chest PA and lateral when patient's condition permits.
[2018-05-07 05:59] LABS: ABSOLUTE BASOPHIL COUNT 0 /CUMM (0.0-0.2); ABSOLUTE EOSINOPHIL COUNT 0 /CUMM (0.0-0.7); ABSOLUTE GRANULOCYTE CT 17.3 /CUMM (1.4-6.5); ABSOLUTE LYMPH COUNT 0.8 /CUMM (1.2-3.4); ABSOLUTE MONOCYTE COUNT 0.9 /CUMM (0.10-0.60); BASOPHIL % 0.1 % (0.0-2.0); EOSINOPHIL % 0 % (0-5); HEMATOCRIT 32.5 % (37-47); MEAN CORPUSCULAR HGB 30.3 PG (27.0-31.0); MEAN CORPUSCULAR HGB CONC 33.9 G/DL (33.0-37.0); MEAN CORPUSCULAR VOLUME 89.3 FL (81.0-99.0); MEAN PLATELET VOLUME 8.6 FL (7.4-10.4); PLATELET COUNT 184 /CUMM (130-400); RBC DISTRIBUTION WIDTH 14.5 % (11.5-14.5); RED BLOOD CELL CT 3.64 /CUMM (4.20-5.40)
[2018-05-07 06:00] VITALS: BP 118/70
[2018-05-07 06:04] LABS: PT 13.6 SEC (9.4-12.5)
[2018-05-07 06:07] LABS: PTT 51 SEC (25-37)
--- NOTE | 2018-05-07 09:03 | PN- Housestaff ---
Dejon Edge 05/07/18 0903: Subjective Follow-up For: Chest Pain New onset Afib with RVR Subjective: No events on telemetry, it showed Afib 78-91 and Aflutter 71-76 overnight. No events per nursing. Patient is lying in bed comfortably, mild distress. She complains of the same mid substernal chest pain she came in with. She denies any palpitations, diaphoresis, numbness in extremities, blurry vision , shortness of breath. Review of Systems Constitutional: Reports: see HPI. Objective Last 24 Hrs of Vital Signs/I&O Vital Signs Date Time Temp Pulse Resp B/P B/P Pulse O2 O2 Flow FiO2 Mean Ox Delivery Rate 05/08 0000 99 Nasal 2.0L Cannula 05/07 2223 98.0 82 20 124/68 96 Nasal 2.0L Cannula 05/07 1600 98 Nasal 2.0L Cannula 05/07 1400 98.2 80 20 130/60 94 05/07 0821 78 120/70 05/07 0802 78 120/70 05/07 0800 96 05/07 0600 97.8 65 22 118/70 97 Intake & Output 05/08 0800 05/08 0000 05/07 1600 Intake Total 240 674 Output Total 500 Balance 240 174 Intake, IV 174 Intake, Oral 240 500 Number 0 Bowel Movements Output, Urine 500 Patient 168 lb Weight Weight Bed scale Measurement Method Physical Exam General Appearance: Alert, Oriented X3, Cooperative Current Medications: Current Medications Sig/Penelope Start time Last Medication Dose Route Stop Time Status Admin Acetaminophen 0 .STK-MED ONE 05/07 0540 DC PO Acetaminophen 650 MG Q6P PRN 05/06 2300 AC 05/07 PO 0539 Amlodipine Besylate 5 MG DAILY 05/07 09 AC 05/07 PO 0821 Aspirin 81 MG DAILY 05/07 0900 AC 05/07 PO 0754 Atorvastatin Calcium 40 MG 1700 05/07 1700 AC 05/07 PO 1722 Budesonide/ 2 PUF BID 05/07 09 AC 05/07 Formoterol Fumarate INH 2025 Escitalopram Oxalate 5 MG DAILY 05/07 09 AC 05/07 PO 0803 Heparin Sodium 25,000 UNIT Q24H 05/07 1715 AC 05/07 (Porcine) IV 1722 Sodium Chloride 500 ML Heparin Sodium 25,000 UNIT Q24H 05/06 2300 DC 05/06 (Porcine) IV 2305 Sodium Chloride 500 ML Hydrochlorothiazide 12.5 MG DAILY 05/07 09 AC 05/07 PO 0803 Levothyroxine Sodium 0.1 MG DAILY AC 05/07 0700 AC 05/07 PO 05 Losartan Potassium 100 MG DAILY 05/07 09 AC 05/07 PO 08 Metoprolol Tartrate 75 MG BID 05/06 2257 AC 05/07 PO 2025 Montelukast Sodium 10 MG 2200 05/07 220 AC 05/07 PO 2025 Morphine Sulfate 2 MG ONCE ONE 05/07 1530 DC 05/07 IV 05/07 1531 1541 Nitroglycerin 0.5 GM Q6 05/07 1800 AC 05/07 TOP 2333 Nitroglycerin 1 GM ONCE PRN 05/07 1600 DC TOP 05/07 2300 Nitroglycerin 0 .STK-MED ONE 05/07 1531 DC Nitroglycerin 1 GM ONCE ONE 05/07 1530 CAN TOP 05/07 1531 Nitroglycerin 0.4 MG ONCE ONE 05/07 1530 DC 05/07 SL 05/07 1531 1532 Nitroglycerin 0 .STK-MED ONE 05/07 1529 DC TOP Nitroglycerin 0 .STK-MED ONE 05/07 1527 DC TOP Omeprazole 20 MG DAILY AC 05/07 0700 AC 05/07 PO 0512 Last 24 Hrs of Lab/Tony Results Last 24 Hrs of Labs/Mics: Laboratory Tests 05/07/18 1530: Troponin I 0.01 05/07/18 1340: APTT > 120 *H 05/07/18 0538: PT 13.6 H, INR 1.24 H 05/07/18 0538: Anion Gap 9, Estimated GFR 40 L, BUN/Creatinine Ratio 26.2 H, Magnesium 2.1, Troponin I 0.01, TSH 0.648, Free T4 1.64, APTT 51 H, CBC w Diff NO MAN DIFF REQ , RBC 3.64 L, MCV 89.3, MCH 30.3, MCHC 33.9, RDW 14.5, MPV 8.6, Gran % 91.0 H, Lymphocytes % 4.4 L, Monocytes % 4.5, Eosinophils % 0, Basophils % 0.1, Absolute Granulocytes 17.3 H, Absolute Lymphocytes 0.8 L, Absolute Monocytes 0.9 H, Absolute Eosinophils 0, Absolute Basophils 0 Assessment/Plan Assessment: 78 year old F with PMH of HTN, HLD, and asthma. Beginning this past Tuesday, patient noted new onset chest discomfort. She came to ED, workup was negative and went home. It became much more prominent yesterday so her brought her back to the ER. She describes it as mild to mod midsternal pressure that radiates toward her neck at times. She says it is associated with nausea and diaphoresis. On exertion, she has CP along with SOB but she also has the same pain at rest. Deep inhalation will also elicit the pain. In the ER the patient had an ECG that showed newly discovered atrial fibrillation with RVR that was not present on April 30. There are no ischemic ekg changes and trops were wnl. Spoke with deputy brand inspector. By the presentation and history does not seem likely to be ACS or demand ischemia. Atypical chest pain: Cardio on board Rule out ACS with serial troponins and EKGs Continue aspirin, beta madeleine Atrial fibrillation with RVR CHADSvasc of 4, elderly, female, with HTN Start heparin gtt Patient received 10mg diltiazem IVP in the ED with improved heart rate 90-110 Received digoxin 0.5mg IV x 1 dose Nebivolol (home med) held, started on metoprolol at higher than equivalent dose Metoprolol 75mg PO BID, titrate as needed for added rate control Leukocytosis: 21,000, no clear source for infection CXR negative, UA negative Afebrile, monitor off antibiotics, trend WBC Hypothyroidism: TSH wnl Continue synthroid 100mcg daily Bronchitis: Continue singulair and change Breo for symbicort HTN: Continue norvasc Subsitute home ARB/chlorthalidone with Losartan 100/HCTZ 12.5mg daily GERD: Continue PO PPI Depression: Continue lexapro 5mg daily Heart healthy diet DVT ppx-IV heparin Full code Problem List: 1. Chest pain Pain Ratin Pain Location: n/a Pain Goal: Remain pain free Pain Plan: per pathway Tomorrow's Labs & Rationales: CBC BEP T4 TSH Ramon Woodard MD 05/07/18 1652: Attending Review Statement Attending Statement Attending MD Statement: examined this patient, discuss w/resident/PA/MANAGER FIRE, agreed w/resident/PA/MANAGER FIRE, reviewed EMR data (avail) Attending Assessment/Plan: 78F PMH hypertension, asthma, bronchitis, and a renal cystic mass admitted overnight with mid-sternal chest pain and new onset atrial fibrillation. She is still having mid-sternal chest pain but it is better than yesterday. The pain does not radiate, is not exertional.
[2018-05-07 14:00] VITALS: BP 130/60
[2018-05-07 15:45] LABS: PTT > 120 SEC (25-37)
--- NOTE | 2018-05-07 16:33 | Cons- Cardiology ---
General Information and HPI Consulting Request Date of Consult: 05/07/18 Requested By: Nicola Piña MD History of Present Illness: Stacey is a 78 year old female with history of hypertension, dyslipidemia and asthma. Beginning this past Tuesday, the patient noted new onset chest discomfort. It became much more prominent yesteday prompting her presentation to the ER. This discomfort is a mild to severe midsternal pressure that radiates toward the base of her neck at times. There is occasional associated nausea and diaphoresis. When she is active she has the chest discomfort along with shortness of breath but she also has the discomfort at rest. Deep inhalation will also elicit the pain. Otherwise the patient denies lightheadedness or palpitations. In the ER the patient had an ECG that showed newly discovered atrial fibrillation that was not present on April 30. There are no ischemic electrocardiographic changes and her troponins and normal. The patient has no awareness of the atrial fibrillation. Allergies/Medications Allergies: Coded Allergies: clarithromycin (SWELLING TO FACE 04/30/18) Home Med List: Albuterol Sulfate (Proair Hfa) 90 MCG HFA.AER.AD 2 PUF INH Q4-6 PRN PRN ASTHMA (Reported) Amlodipine Besylate 5 MG TABLET 1 TAB PO DAILY BP (Reported) Aspirin (Ecotrin*) 81 MG TABLET.DR 1 TAB PO DAILY HEART/BLOOD (Reported) Azilsartan Med/Chlorthalidone (Edarbyclor 40-12.5 MG Tablet) 40 MG-12.5 MG TABLET 1 TAB PO DAILY BP (Reported) Escitalopram Oxalate 5 MG TABLET 1 TAB PO DAILY MENTAL HEALTH (Reported) Esomeprazole Magnesium (Nexium) 20 MG CAPSULE.DR 1 CAP PO DAILY GI (Reported) Fluticasone Propionate (Flonase Allergy Relief) 50 MCG/ACTUATION SPRAY.SUSP 1 SPRAY NASB AD PRN ALLERGIES (Reported) Fluticasone/Vilanterol (Breo Ellipta 100-25 Mcg INH) 100 MCG-25 MCG/DOSE BLST.W.DEV 1 PUFF INH DAILY ASTHMA (Reported) Levothyroxine Sodium (Synthroid) 100 MCG TABLET 1 TAB PO DAILY THYROID ( Reported) Montelukast Sodium (Singulair) 10 MG TABLET 1 TAB PO DAILY ALLERGIES/RESP. ( Reported) Nebivolol HCl (Bystolic) 10 MG TABLET 1 TAB PO DAILY BP (Reported) Review of Systems Review of Systems: A review of systems is remarkable for a paresthesia in her left hand both with and without chest discomfort. 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 MOTHER FH: myocardial infarction BROTHER FH: myocardial infarction BROTHER FH: myocardial infarction Relation not specified for: FH: CHF (congestive heart failure) Psychosocial History Where Do You Live? Home Who Do You Live With? spouse Services at Home: None Primary Language: German Smoking Status: Former Smoker ETOH Use: occasional use (drinks wknd b4 cp 04/30 ) Illicit Drug Use: denies illicit drug use Functional Ability ADLs Independent: dressing, eating, toileting, bathing. Ambulation: independent IADLs Independent: shopping, housework, finances, food prep, telephone, transportation , medication admin. Employment History Employment: Retired Exam & Diagnostic Data Vital Signs and I&O Vital Signs Date Time Temp Pulse Resp B/P B/P Pulse O2 O2 Flow FiO2 Mean Ox Delivery Rate 05/07 1400 98.2 80 20 130/60 94 05/07 0821 78 120/70 05/07 0802 78 120/70 05/07 0800 96 05/07 0600 97.8 65 22 118/70 97 05/06 2259 99.0 107 18 148/70 98 Nasal 2.0L Cannula 05/06 2246 Nasal 2.0L Cannula 05/06 2153 102 20 147/62 96 Nasal 2.0L Cannula 05/06 2052 99.0 101 20 152/72 97 Nasal 2.0L Cannula 05/06 2049 99.0 05/06 2015 112 28 98/66 05/06 2015 112 28 98/66 95 Nasal 2.0L Cannula 05/06 2000 Nasal 2.0L Cannula 05/06 1935 130 26 141/79 05/06 191 97.6 136 22 147/92 96 Room Air Intake & Output 05/07 1600 05/07 0800 08/19 0000 05/06 1600 05/06 0800 05/06 0000 Intake Total 674 120 Output Total 500 Balance 174 120 Intake, IV 174 Intake, Oral 500 120 Number 0 Bowel Movements Output, Urine 500 Patient 164 lb Weight Weight Bed scale Measurement Method Physical Exam: General: WD/obese female in NAD; alert and oriented x 3 HEENT: NC/AT, PERRL, EOMI Neck: no JVD, no carotid bruit Heart: irreguarly irregular without murmur Lungs: decreased air movement bilaterally without crackles Abdomen: soft, NT, +ve bowel sounds Ezxtremities: no edema Assessment/Plan Assessment/Plan * This patient has multiple risk factors for coronary artery disease along with recurrent chest pain. We will treat her for unstable angina and begin aspirin 81mg daily along with IV heparin. Continue a statin and begin NTG paste 1/2 inch Q 6 hours. Rule her out for an [place] by three sets of cardiac enzymes. Arrange for risk stratification with a pharmacologic stress test tomorrow. I would also consider bronchospasm related to asthma as a cause of pain. * The patient also has atrial fibrillation which is new. It is possible that tachycardia in the setting of stable but significant CAD is bringing out ischemic symptoms. Continue Metoprolol at 75mg BID. Anticoagulate with IV heparin as above. Check a TSH and free T4. Obtain an echocardiogram. Consult Acknowledgment - Thank you for your consult request.
--- NOTE | 2018-05-07 17:01 | ECHOCARDIOGRAM REPORT ---
TY PISANO Age: 78 : 1940 Gender: F Exam Date: 05/07/2018 13:53 Exam Location: [place] Ht (in): 60 Wt (lb): 164 BSA: 1.81 BP: 118 / 70 Ordering Physician: Gray Alamo MD Referring Physician: Bang Flower MD Technologist: Carmela Freeman [facility] Room Number: 174-01 Indications: Afib/flutter Rhythm: Atrial fibrillation Technical Quality: fair FINDINGS Left Ventricle Normal size left ventricle. Left ventricular wall thickness mildly increased. Normal left ventricular ejection fraction estimated at 60-65%. Right Ventricle Normal right ventricular size and function. Right Atrium Normal right atrial size. Left Atrium Mild left atrial dilatation. Mitral Valve Mild mitral annular calcification. Yowo-ef-aadxfudm mitral regurgitation. Aortic Valve Aortic valve is normal in structure and function. Tricuspid Valve Tricuspid valve is normal in structure and function. Mild-to- moderate tricuspid regurgitation. Right ventricular systolic pressure estimated to be elevated at 36 mmHg. Pulmonic Valve Structurally normal pulmonic valve. Pericardium Small pericardial effusion. Great Vessels Normal size aortic root. CONCLUSIONS Normal left ventricular systolic function with mild concentric hypertrophy. Mild left atrial enlargement. Small Pericardial effusion. Mild to moderate Mitral and Tricuspid regurgitstion with mild Pulmonary hypetension. Bang Flower M.D. (Electronically Signed) Final Date: 07 May 2018 17:00 MEASUREMENTS (Male / Female) Normal Values 2D ECHO LV Diastolic Diameter PLAX 4.5 cm 4.2 - 5.9 / 3.9 - 5.3 cm LV Systolic Diameter PLAX 2.8 cm 2.1 - 4.0 cm LV Fractional Shortening PLAX 37.8 % 25 - 46 % LV Ejection Fraction 2D Teich 68.0 % IVS Diastolic Thickness 1.2 cm LVPW Diastolic Thickness 1.1 cm LV Relative Wall Thickness 0.5 RV Internal Dim ED PLAX 2.9 cm 1.9 - 3.8 cm LVOT Diameter 1.9 cm Aortic Root Diameter 2.5 cm LA Systolic Diameter LX 3.9 cm 3.0 - 4.0 / 2.7 - 3.8 cm LA Volume 39.0 cm 18 - 58 / 22 - 52 cm Ascending Aorta Diameter 2.9 cm DOPPLER AV Peak Velocity 124.0 cm/s AV Peak Gradient 6.2 mmHg AV Mean Velocity 93.1 cm/s AV Mean Gradient 4.0 mmHg AV Velocity Time Integral 27.1 cm LVOT Peak Velocity 103.0 cm/s LVOT Peak Gradient 4.2 mmHg LVOT Mean Velocity 71.6 cm/s LVOT Mean Gradient 2.0 mmHg LVOT Velocity Time Integral 19.1 cm LVOT Stroke Volume 54.2 cm AV Area Cont Eq vti 2.0 cm AV Area Cont Eq pk 2.4 cm MV Peak Velocity 121.0 cm/s MV Peak Gradient 5.9 mmHg MV Mean Velocity 66.7 cm/s MV Mean Gradient 2.0 mmHg Mitral E Point Velocity 120.0 cm/s MV PHT Velocity 126.0 cm/s MV Deceleration Mono 488.0 cm/s MV Pressure Half Time 77.5 ms MV Area PHT 2.8 cm MV Deceleration Time 169.0 ms TR Peak Velocity 282.0 cm/s TR Peak Gradient 31.8 mmHg Right Atrial Pressure 5.0 mmHg Pulmonary Artery Systolic Pressure 36.8 mmHg Right Ventricular Systolic Pressure 36.8 mmHg PV Peak Velocity 77.7 cm/s PV Peak Gradient 2.4 mmHg PV Mean Velocity 57.4 cm/s PV Mean Gradient 2.0 mmHg PV Velocity Time Integral 17.8 cm LV E' Lateral Velocity 9.6 cm/s Mitral E to LV E' Lateral Ratio 12.6 LV E' Septal Velocity 8.8 cm/s Mitral E to LV E' Septal Ratio 13.7
[2018-05-07 22:23] VITALS: BP 124/68
[2018-05-08 00:26] LABS: PTT 55 SEC (25-37)
[2018-05-08 07:29] VITALS: BP 122/64
--- NOTE | 2018-05-08 07:45 | PN- Housestaff ---
Christine Kohler 05/08/18 0736: Subjective Follow-up For: CHEST PAIN Subjective: Overnight patient's heart rate remained in A. fib ranging from 66-94. Patient continues to complain of the little chest pain which she states is secondary to her productive cough. Patient denies lightheadedness, dizziness, fever, night sweats, chills. Review of Systems Constitutional: Reports: see HPI. Objective Last 24 Hrs of Vital Signs/I&O Vital Signs Date Time Temp Pulse Resp B/P B/P Pulse O2 O2 Flow FiO2 Mean Ox Delivery Rate 05/08 0729 98.4 78 18 122/64 98 Nasal 2.0L Cannula 05/08 0000 99 Nasal 2.0L Cannula 05/07 2223 98.0 82 20 124/68 96 Nasal 2.0L Cannula 05/07 1600 98 Nasal 2.0L Cannula 05/07 1400 98.2 80 20 130/60 94 05/07 0821 78 120/70 05/07 0802 78 120/70 05/07 0800 96 Intake & Output 05/08 0800 05/08 0000 05/07 1600 Intake Total 240 240 674 Output Total 500 Balance 240 240 174 Intake, IV 174 Intake, Oral 240 240 500 Number 0 Bowel Movements Output, Urine 500 Patient 168 lb Weight Weight Bed scale Measurement Method Physical Exam General Appearance: Alert, Oriented X3, Cooperative Cardiovascular: IRREGULAR Lungs: Clear to Auscultation, Normal Air Movement Abdomen: Normal Bowel Sounds, Soft, No Tenderness Assessment/Plan Assessment: 78 year old F with PMH of HTN, HLD, and asthma. Beginning this past Tuesday, patient noted new onset chest discomfort. She came to ED, workup was negative and went home. It became much more prominent yesterday so her brought her back to the ER. She describes it as mild to mod midsternal pressure that radiates toward her neck at times. She says it is associated with nausea and diaphoresis. On exertion, she has CP along with SOB but she also has the same pain at rest. Deep inhalation will also elicit the pain. In the ER the patient had an ECG that showed newly discovered atrial fibrillation with RVR that was not present on April 30. There are no ischemic ekg changes and trops were wnl. Problem list 1. Exertional dyspnea 2. New onset nonvalvular atrial fibrillation 3. Leukocytosis 4. Hypothyroidism 5. Hyperlipidemia 6. Hypertension 7. GERD 7. Depression #Exertinal Dyspnea: Patient had similiar symptoms during previous visit, EKG and troponins were negative. Troponins are negative current admission, symptoms are consistent with stable angina. ECHO on 05/07/18 shows normal LVEF 60-65%, elevated RV systolic pressure 36mmHg -patient is scheduled for stress test today at 1000 -If stress test is negative will discharge patient home with Eliquis 5mg BID -If stress test is positive patient will require cardiac catheterization on Tuesday, will discontinue Eliquis and start patient on IV heparin drip #New onset nonvalvular atrial fibrillation. Possible etiology: Idiopathic versus tachycardia induced A. fib. Patient has normal thyroid panel. CHADSvasc 4. -Continue heparin gtt -Continue Metoprolol 75mg PO BID -Patient received 10mg diltiazem IV in the ED with improved heart rate 90-110 -Received digoxin 0.5mg IV x 1 dose #Leukocytosis: White blood cell count 20 one-point has been trending down today at 13.3. Because of leukocytosis unclear, chest x-ray is negative, UA is negative patient is afebrile. His most likely reactive leukocytosis. -Continue to monitor patient for symptoms. #Hypothyroidism: -Continue synthroid 100mcg daily #Hyperlipidemia -Continue atorvastatin 40 mg #HTN: -Norvasc 5mg daily -Losartan 100mg daily -HCTZ 12.5mg daily #GERD: Omeprazole 20 mg daily #Depression: Continue lexapro 5mg daily Heart healthy diet DVT ppx-IV heparin Full code Problem List: 1. Chest pain Pain Ratin Pain Location: Substernal Pain Goal: Remain pain free Pain Plan: Tylenol, nitroglycerin Tomorrow's Labs & Rationales: cbc,bep Tio GREGORY,Justin 05/08/18 1229: Attending MD Review Statement Attending Statement Attending MD Statement: examined this patient, discuss w/resident/PA/DRAGLINE OILER, agreed w/resident/PA/DRAGLINE OILER, reviewed EMR data (avail), discussed with nursing, discussed with case mgmt, amended to note Attending Assessment/Plan: Patient seen and examined. Resting comfortably not in any acute distress. No issues overnight. Currently rate controlled on telemetry monitoring. Denies chest pain or shortness of breath at rest or with exertion. Denies any abdominal pain. Denies any black or bloody stools. Problems: 1. Chest pain 2. New onset atrial fibrillation 3. Anemia 4. Leukocytosis Plan: -Patient has ruled out for ACS with negative cardiac enzymes. No ischemic changes on EKG. Symptoms may be related to her atrial fibrillation. She is currently undergoing nuclear stress test for further evaluation. 1 -She is currently rate controlled on metoprolol. She is on anticoagulant therapy with Eliquis started this morning. Blood pressure is stable. Patient is on losartan, amlodipine and hydrochlorothiazide. -Hemoglobin level is noted to be trending down slowly. Recommend checking stool guaiac. -Leukocytosis is trending down gradually without any antibiotic therapy. Likely due to hemoconcentration on presentation. Continue to monitor.
[2018-05-08 08:18] VITALS: BP 122/64
[2018-05-08 08:23] LABS: PTT 67 SEC (25-37)
[2018-05-08 08:37] LABS: ABSOLUTE BASOPHIL COUNT 0 /CUMM (0.0-0.2); ABSOLUTE EOSINOPHIL COUNT 0 /CUMM (0.0-0.7); ABSOLUTE GRANULOCYTE CT 11.5 /CUMM (1.4-6.5); ABSOLUTE LYMPH COUNT 0.8 /CUMM (1.2-3.4); ABSOLUTE MONOCYTE COUNT 0.9 /CUMM (0.10-0.60); BASOPHIL % 0.2 % (0.0-2.0); EOSINOPHIL % 0.3 % (0-5); GRANULOCYTE % 86.7 % (42.2-75.2); HEMATOCRIT 30.1 % (37-47); MEAN CORPUSCULAR HGB 29.9 PG (27.0-31.0); MEAN CORPUSCULAR HGB CONC 33.5 G/DL (33.0-37.0); MEAN CORPUSCULAR VOLUME 89.3 FL (81.0-99.0); PLATELET COUNT 153 /CUMM (130-400); RBC DISTRIBUTION WIDTH 14.4 % (11.5-14.5); RED BLOOD CELL CT 3.37 /CUMM (4.20-5.40)
[2018-05-08 09:55] LABS: WHITE BLOOD CELL COUNT 13.3 /CUMM (4.8-10.8)
[2018-05-08] MEDS ORDERED: METOPROLOL TART75 MG PO ×2 (10:03→17:29)
[2018-05-08] MEDS ORDERED: ATORVASTATIN CA40 M1 PO ×2 (10:03→17:29)
[2018-05-08] MEDS ORDERED: ELIQUIS5 M1 PO ×2 (10:03→17:29)
--- NOTE | 2018-05-08 12:38 | PN- Cardiology ---
Subjective Subjective: Minimal chest discomfort which appears mostly due to cough. She did undergo the first part of her stress test earlier today Objective Vital Signs and I&Os Vital Signs Date Time Temp Pulse Resp B/P B/P Pulse O2 O2 Flow FiO2 Mean Ox Delivery Rate 05/08 0818 108 122/64 05/08 0817 108 122/64 05/08 0800 97 Room Air Room Air 05/08 0729 98.4 78 18 122/64 98 Nasal 2.0L Cannula 05/08 0000 99 Nasal 2.0L Cannula 05/07 2223 98.0 82 20 124/68 96 Nasal 2.0L Cannula 05/07 1600 98 Nasal 2.0L Cannula 05/07 1400 98.2 80 20 130/60 94 Intake & Output 05/08 1600 05/08 0800 05/08 0000 05/07 1600 05/07 0800 05/07 0000 Intake Total 240 240 674 120 Output Total 300 500 Balance -300 240 240 174 120 Intake, IV 174 Intake, Oral 240 240 500 120 Number 0 Bowel Movements Output, Urine 300 500 Patient 164 lb 168 lb 164 lb Weight Weight Bed scale Bed scale Measurement Method Physical Exam: General: no apparent distress. Alert. Eyes: No obvious scleral icterus. HEENT: No jugular venous distention or abnormal jugular venous pulsations. Cardiovascular: Normal intensity S1/S2. Irregular Respiratory: Lungs clear to auscultation bilaterally. Abdomen: Soft, nontender with no guarding or rebound tenderness. Musculoskeletal: No clubbing or cyanosis noted Skin: warm Neurologic: No gross focal deficits noted. Current Medications: Current Medications Sig/Penelope Start time Last Medication Dose Route Stop Time Status Admin Acetaminophen 650 MG Q6P PRN 05/06 2300 AC 05/07 PO 0539 Amlodipine Besylate 5 MG DAILY 05/07 900 AC 05/08 PO 0818 Apixaban 5 MG BID 05/08 09 DC 05/08 PO 0940 Aspirin 81 MG DAILY 05/07 900 AC 05/08 PO 0816 Atorvastatin Calcium 40 MG 1700 05/07 1700 AC 05/07 PO 1722 Budesonide/ 2 PUF BID 05/07 900 AC 05/08 Formoterol Fumarate INH 0818 Dipyridamole 40 MG ONE ONE 05/08 1000 DC Dextrose/Water 32 ML IV 05/08 1001 Escitalopram Oxalate 5 MG DAILY 05/07 900 AC 05/08 PO 0817 Heparin Sodium 25,000 UNIT Q24H 05/08 1145 AC (Porcine) IV Sodium Chloride 500 ML Heparin Sodium 25,000 UNIT Q24H 05/07 1715 DC 05/07 (Porcine) IV 1722 Sodium Chloride 500 ML Heparin Sodium 25,000 UNIT Q24H 05/06 2300 DC 05/06 (Porcine) IV 2305 Sodium Chloride 500 ML Hydrochlorothiazide 12.5 MG DAILY 05/07 0900 AC 05/08 PO 0817 Levothyroxine Sodium 0.1 MG DAILY AC 05/07 0700 AC 05/08 PO 0511 Losartan Potassium 100 MG DAILY 05/07 0900 AC 05/08 PO 0817 Metoprolol Tartrate 75 MG BID 05/06 2257 AC 05/08 PO 08 Montelukast Sodium 10 MG 2200 05/07 2200 AC 05/07 PO 202 Morphine Sulfate 2 MG ONCE ONE 05/07 1530 DC 05/07 IV 05/07 1531 1541 Nitroglycerin 0.5 GM Q6 05/07 1800 AC 05/07 TOP 2333 Nitroglycerin 1 GM ONCE PRN 05/07 1600 DC TOP 05/07 2300 Nitroglycerin 0 .STK-MED ONE 05/07 1531 DC SL Nitroglycerin 1 GM ONCE ONE 05/07 1530 CAN TOP 05/07 1531 Nitroglycerin 0.4 MG ONCE ONE 05/07 1530 DC 05/07 SL 05/07 1531 1532 Nitroglycerin 0 .STK-MED ONE 05/07 1529 DC TOP Nitroglycerin 0 .STK-MED ONE 05/07 1527 DC TOP Omeprazole 20 MG DAILY AC 05/07 0700 AC 05/08 PO 0511 Results Last 48 Hrs of Labs/Mics: Laboratory Tests 05/08/18 0645: Anion Gap 8, Estimated GFR 54 L, BUN/Creatinine Ratio 26.0 H, Troponin I < 0.01, TSH 1.110, Free T4 1.66, Thyroxine (T4) 9.5, APTT 67 H, CBC w Diff NO MAN DIFF REQ, RBC 3.37 L, MCV 89.3, MCH 29.9, MCHC 33.5, RDW 14.4, MPV 9.0, Gran % 86.7 H, Lymphocytes % 6.0 L, Monocytes % 6.8, Eosinophils % 0.3, Basophils % 0.2, Absolute Granulocytes 11.5 H, Absolute Lymphocytes 0.8 L, Absolute Monocytes 0.9 H, Absolute Eosinophils 0, Absolute Basophils 0 05/08/18 0300: Troponin I Cancelled 05/07/18 2330: Troponin I 0.02, APTT 55 H 05/07/18 1530: Troponin I 0.01 05/07/18 1340: APTT > 120 *H 05/07/18 0538: PT 13.6 H, INR 1.24 H 05/07/18 0538: Anion Gap 9, Estimated GFR 40 L, BUN/Creatinine Ratio 26.2 H, Magnesium 2.1, Troponin I 0.01, TSH 0.648, Free T4 1.64, APTT 51 H, CBC w Diff NO MAN DIFF REQ , RBC 3.64 L, MCV 89.3, MCH 30.3, MCHC 33.9, RDW 14.5, MPV 8.6, Gran % 91.0 H, Lymphocytes % 4.4 L, Monocytes % 4.5, Eosinophils % 0, Basophils % 0.1, Absolute Granulocytes 17.3 H, Absolute Lymphocytes 0.8 L, Absolute Monocytes 0.9 H, Absolute Eosinophils 0, Absolute Basophils 0 05/07/18 0020: Troponin I 0.01 05/06/182: Urine Color YEL, Urine Clarity CLEAR, Urine pH 6.0, Ur Specific Allison <= 1.005 , Urine Protein NEG, Urine Ketones NEG, Urine Nitrite NEG, Urine Bilirubin NEG, Urine Urobilinogen 0.2, Ur Leukocyte Esterase NEG, Ur Microscopic EXAM NOT REQUIRED, Urine Hemoglobin NEG, Urine Glucose NEG 05/06/18 2149: Triglycerides 66, Cholesterol 137, LDL Cholesterol, Calc 82, HDL Cholesterol 42, Cholesterol/HDL Ratio 3, TSH &T3 &Free T4 Intrp 1.020 05/06/18 2116: Lactic Acid 1.1 05/06/18 1924: Anion Gap 12, Estimated GFR 54 L, BUN/Creatinine Ratio 32.0 H, Glucose 139 H, Calcium 9.5, Magnesium 1.9, Total Bilirubin 0.5, AST 19, ALT 22, Alkaline Phosphatase 59, Troponin I 0.01, Total Protein 7.4, Albumin 4.0, Globulin 3.4, Albumin/Globulin Ratio 1.2, CBC w Diff MAN DIFF ORDERED, RBC 4.13 L, MCV 88.9, MCH 29.8, MCHC 33.5, RDW 14.2, MPV 8.0, Gran % 90.9 H, Lymphocytes % 4.5 L, Monocytes % 4.2, Eosinophils % 0.2, Basophils % 0.2, Absolute Granulocytes 19.2 H, Segmented Neutrophils 86 H, Band Neutrophils 0, Absolute Lymphocytes 1.0 L, Lymphocytes 4 L, Monocytes 10 H, Absolute Monocytes 0.9 H, Absolute Eosinophils 0, Absolute Basophils 0, Platelet Estimate VERIFIED BY SMEAR, Normocytic RBCs VERIFIED, Normochromic RBCs VERIFIED, Fld Total RBCs Counted 100 Recent Imaging Studies: Telemetry tracings are personally reviewed and show atrial for ablation with grossly controlled ventricular response rate Echocardiogram Normal left ventricular systolic function with mild concentric hypertrophy. Mild left atrial enlargement. Small Pericardial effusion. Mild to moderate Mitral and Tricuspid regurgitstion with mild Pulmonary hypetension. Bang Flower M.D. (Electronically Signed) Final Date: 07 May 2018 17:00 Assessment/Plan Assessment/Plan 1. New onset nonvalvular atrial fibrillation with elevated chads vasc score 2. Chest discomfort of unclear etiology 3. Resolving leukocytosis 4. History of hypertension 5. History of hypothyroidism 6. History of asthma 7. History of hyperlipidemia Patient remains in atrial fibrillation with grossly controlled ventricular response rate. Echocardiogram shows normal ejection fraction with no evidence of significant mitral stenosis. She is undergoing nuclear stress test today; if no significant ischemia noted on the nuclear stress test she can likely be discharged later today on oral Eliquis and if remains in atrial fibrillation on cardiology follow-up she may be a candidate for cardioversion or possibly atrial fibrillation ablation. Case discussed at length with the medical team today and also with the patient. Bright Rogers MD [facility] Continue telemetry? Yes
--- NOTE | 2018-05-08 15:46 | NUCLEAR MEDICINE REPORT ---
PERSANTINE STRESS AND RESTING SPECT MYOCARDIAL PERFUSION IMAGING STUDY WITH GATED SPECT IMAGES: CLINICAL INDICATION: Chest pain PROCEDURE: Regional myocardial perfusion was assessed using a 1 day protocol. Stress images were obtained on 05/08/2018 following the intravenous administration of 18.3 mCi Tc 99m Myoview. Stress consisted of 40 mg Persantine given intravenously. Following the sestamibi injection, no aminophylline was given intravenously. Rest images were obtained 05/08/2018 following the intravenous administration of 32.3 mCi Technetium 99m Myoview. Single photon emission tomographic (SPECT) images were obtained. SPECT images were acquired in a 64 x 64 matrix of 64 projections over 180 degrees. These were reconstructed into standard short axis, horizontal and vertical long axis cardiac projections. FINDINGS: The post stress images demonstrate the left ventricular chamber to be normal in size. There is homogeneous distribution of activity in the left ventricular myocardium with no regions of abnormally decreased activity noted. The resting images also demonstrate homogeneous distribution of activity in the left ventricular myocardium, and are not significantly changed from the post stress images. The images were obtained using a gated SPECT technique, which permits visualization of wall motion and calculation of the left ventricular ejection fraction. No left ventricular wall motion abnormalities are noted on either the stress or resting study. The calculated left ventricular ejection fraction is 65% on the stress study. No previous study is available for comparison. IMPRESSION: Normal Persantine stress and resting myocardial perfusion study with normal left ventricular wall motion and ejection fraction.
[2018-05-08 17:01] LABS: ABSOLUTE BASOPHIL COUNT 0 /CUMM (0.0-0.2); ABSOLUTE EOSINOPHIL COUNT 0 /CUMM (0.0-0.7); ABSOLUTE GRANULOCYTE CT 11.2 /CUMM (1.4-6.5); ABSOLUTE LYMPH COUNT 0.9 /CUMM (1.2-3.4); ABSOLUTE MONOCYTE COUNT 0.5 /CUMM (0.10-0.60); BASOPHIL % 0.1 % (0.0-2.0); EOSINOPHIL % 0.1 % (0-5); HEMATOCRIT 31.7 % (37-47); MEAN CORPUSCULAR HGB 30.2 PG (27.0-31.0); MEAN CORPUSCULAR HGB CONC 34.1 G/DL (33.0-37.0); MEAN CORPUSCULAR VOLUME 88.6 FL (81.0-99.0); MEAN PLATELET VOLUME 8.3 FL (7.4-10.4); PLATELET COUNT 185 /CUMM (130-400); RBC DISTRIBUTION WIDTH 14.2 % (11.5-14.5); RED BLOOD CELL CT 3.58 /CUMM (4.20-5.40); WHITE BLOOD CELL COUNT 12.6 /CUMM (4.8-10.8)
[2018-05-08 17:08] LABS: GRANULOCYTE % 88.7 % (42.2-75.2)
--- NOTE | 2018-05-08 17:30 | Patient Discharge Instructions ---
Discharge Instructions General Discharge Information You were seen/treated for: Chest Pain New Onset A.fib Special Instructions: Please follow up with your PCP,and Co Founder And Director within a week after discharge. Diet Continue normal diet: Yes Recommended Diet: Heart Healthy Activity Full Activity/No Limits: Yes Activity Self Limited: Yes Acute Coronary Syndrome Inclusion Criteria At DC or during hospital stay patient has or had the following: ACS DIAGNOSIS No Discharge Core Measures Meds if any: Prescribed or Continued at Discharge Meds if any: NOT Prescribed or Continued at Discharge Congestive Heart Failure Inclusion Criteria At DC or during hospital stay patient has or had the following: CHF DIAGNOSIS No Discharge Core Measures Meds if any: Prescribed or Continued at Discharge Meds if any: NOT Prescribed or Continued at Discharge Cerebrovascular accident Inclusion Criteria At DC or during hospital stay patient has or had the following: CVA/TIA Diagnosis No Discharge Core Measures Meds if any: Prescribed or Continued at Discharge Meds if any: NOT Prescribed or Continued at Discharge Venous thromboembolism Inclusion Criteria VTE Diagnosis No VTE Type NONE VTE Confirmed by (Test) CT CHEST ANGIOGRAM Discharge Core Measures - Per Current guidelines, there needs to be overlap - treatment for the first 5 days of Warfarin therapy. - If discharged on Warfarin prior to 5 days of - overlap therapy, the patient will need to be - assessed for post discharge needs including - *Post discharge parental anticoagulation - *Warfarin and/or parental anticoagulation education - *Follow up date to check INR post discharge At least 5 days overlap therapy as Inpatient No Meds if any: Prescribed or Continued at Discharge Note: Overlap Therapy is Warfarin and Anticoagulant Meds if any: NOT Prescribed or Continued at Discharge
--- NOTE | 2018-05-09 12:07 | IV DIPYRIDAMOLE NUCLEAR STRESS ---
Clinical Diagnosis: Myocardial ischemia Hogshead Packer: Chelly Durant IV DIPYRIDAMOLE INFUSED: 40 mg IV AMINOPHYLLINE INFUSED: 60 mg PATIENT WEIGHT: 164 lbs INTERPRETATION: The patient's baseline EKG showed atrial fibrillation at 84 BPM. Baseline B/P 132/74. The patient received 40 mg of dipyridamole infused intravenously over a 4 minute period. TC99M Myoview was injected after dipyridamole infusion. The patient complained of shortness of breath and chest heaviness. There were no EKG changes seen following pharmacologic infusion. Arrhythmias: Occasional PVCs IMPRESSION: The test was supervised by the interpreting Construction And Maintenance Inspector, who was in attendance during the entire test. No EKG evidence of stress induced myocardial ischemia. See separately dictated Nuclear Report.
== END 2018-05-08 18:29 | DRG 310 ==
LOC: ERH 18:56 → 1NO 19:36 → ERHI 19:36 → EDBEDREQ 21:36 → ENRESERV 21:41 → ENTRNSPT 22:26 → EDTRNSPT 22:32 → EDTRNSPTSTS 22:32 → 1NO 22:38 → CMPTRNSPT 22:57 → 1NO 05-08 07:33 → ENPENDDIS 05-08 17:58 → ENTRNSPT 05-08 18:09 → EDTRNSPTSTS 05-08 18:20 → 1NO 05-08 18:29 → CMPTRNSPT 05-08 18:33
PROVIDERS: Emergency Medicine; Internal Medicine; Internal Medicine Infectious Disease; Preventive Medicine Public Health & General Preventive Medicine; Student in an Organized Health Care Education/Training Program
DX: I48.91 Unspecified atrial fibrillation (principal); Z79.01 Long term (current) use of anticoagulants; I10 Essential (primary) hypertension; J45.909 Unspecified asthma, uncomplicated; Z87.891 Personal history of nicotine dependence; K21.9 Gastro-esophageal reflux disease without esophagitis; E03.9 Hypothyroidism, unspecified; Z90.710 Acquired absence of both cervix and uterus; Z90.49 Acquired absence of other specified parts of digestive tract; N28.89 Other specified disorders of kidney and ureter; F32.9 Major depressive disorder, single episode, unspecified; Z79.82 Long term (current) use of aspirin; Z79.51 Long term (current) use of inhaled steroids; E78.5 Hyperlipidemia, unspecified; Z88.8 Allergy status to other drugs, medicaments and biological substances; R20.2 Paresthesia of skin; R07.9 Chest pain, unspecified
CPT/HCPCS: 1NSP; 36592; 71045; 78452; 81003; 82436; 87086; 93005; 93010; 93016; 93017; 93306; 96374; 96375; 99291; A9502; J0131; J1245; J1644; J3490; J7040